=== PATIENT | male | born 1950 | race Caucasian/White ===

== ENCOUNTER 2024-02-26 11:41 | Emergency (ER) | payer OTHER, SELFPAY ==
--- NOTE | 2024-02-26 11:54 | ED.URI ---
HPI - URI/Sore Throat General Chief Complaint: Upper Respiratory Infection Stated Complaint: cold symptoms Time Seen by Provider: 02/26/24 12:29 Source: patient, RN notes reviewed and old records reviewed Mode of arrival: ambulatory Limitations: no limitations History of Present Illness HPI Narrative: 73-year-old male presents to the [facility] with cold symptoms for 1 day. Patient reports sinus congestion, bilateral ear pain and postnasal drip since yesterday. Had taken a cold tablets yesterday when symptoms started and 1 last night. Denies taking anything today. Patient reports has a history of hypertension however does take his medications Denies fevers, sore throat. Denies chest pain or congestion Onset (ago): day(s) (1) Treatments prior to arrival: cold medicine Related Data Home Medications Medication Instructions Recorded Confirmed clopidogrel 75 mg tablet 75 mg PO DAILY 02/26/24 02/26/24 empagliflozin 25 mg tablet 25 mg PO DAILY 02/26/24 02/26/24 (Jardiance) fenofibrate 160 mg tablet 160 mg PO DAILY 02/26/24 02/26/24 glimepiride 2 mg tablet 4 mg PO QACBREAK 02/26/24 02/26/24 icosapent ethyl 1 gram capsule 1 g PO BID 02/26/24 02/26/24 lisinopril 20 mg tablet 20 mg PO DAILY 02/26/24 02/26/24 metoprolol tartrate 50 mg tablet 50 mg PO BID 02/26/24 02/26/24 omeprazole 20 mg capsule,delayed 20 mg PO DAILY 02/26/24 02/26/24 release rosuvastatin 40 mg tablet 40 mg PO DAILY 02/26/24 02/26/24 Allergies Allergy/AdvReac Type Severity Reaction Status Date / Time Penicillins Allergy Unknown RASH Verified 04/11/16 11:49 Review of Systems Review of Systems: All systems reviewed & are unremarkable except as noted in HPI and below Constitutional: Constitutional: Reports no additional constitutional complaints Eyes: Eyes: Reports no additional eye complaints ENT: Reports as per HPI Cardiovascular: Cardiovascular: Reports no additional cardiovascular complaints, Denies chest pain and Denies dyspnea Respiratory: Respiratory: Reports no additional respiratory complaints, Denies chest congestion, Denies cough and Denies dyspnea Gastrointestinal: Gastrointestinal: Reports no additional gastrointestinal complaints, Denies abdominal pain, Denies nausea and Denies vomiting Musculoskeletal: Musculoskeletal: Reports no additional musculoskeletal complaints Integumentary/Breasts: Skin/Breast: Reports system reviewed and no additional complaints, except as docu Neurologic: Reports system reviewed and no additional complaints, except as documented Psychiatric: Psychiatric: Reports no additional psychiatric complaints Allergic/Immunologic: Allergic/Immunologic: Reports no additional allergic/immunologic complaints PMFSH Past Medical History Medical History H/O gastroesophageal reflux (GERD) High cholesterol History of high blood pressure History of AL (myocardial infarction) Type 2 diabetes mellitus Surgical History Surgical History Stented coronary artery Social History Social History Gender identity (if verbalized by the patient): Male Comments At the time of my signature, I reviewed and agree with the nursing past medical, surgical, social, and family history. There is no relevant family history pertinent to the patient complaint. Exam Const: General: cooperative, healthy appearing, comfortable, no acute distress, well developed, alert and well nourished Nutritional Appearance: well nourished and obese Orientation/consciousness: patient oriented x3 Limitations: no limitations HENMT: Head: normal to inspection Ears: hearing grossly normal bilaterally, external ears normal, EAC's normal, mastoids normal, no periauricular adenopathy and TM abnormal wth effusion serous bilateral; not bulging and not erythematous Face/Nose/Sinus: Normal external nos
[2024-02-26 12:00] VITALS: BP 148/81; PULSE 80; RESP 16; TEMP 36.8; O2SAT 96
== END 2024-02-26 12:44 | disposition home or self-care (01) ==
PROVIDERS: Emergency Provider Nurse Practitioner; PCP Family Medicine
DX: R09.82 Postnasal drip (principal); J06.9 Acute upper respiratory infection, unspecified; H65.03 Acute serous otitis media, bilateral; K21.9 Gastro-esophageal reflux disease without esophagitis; E78.00 Pure hypercholesterolemia, unspecified; I10 Essential (primary) hypertension; E11.9 Type 2 diabetes mellitus without complications; Z79.84 Long term (current) use of oral hypoglycemic drugs; I25.2 Old myocardial infarction; Z95.5 Presence of coronary angioplasty implant and graft
CPT/HCPCS: 99211; G0463